=== PATIENT | female | born 1990 | race Caucasian/White ===

== ENCOUNTER 2017-07-22 16:36 | Outpatient (CLI) | payer OTHER, MEDICAID ==
[~2017-07-22] VITALS: Ht 165.1 cm; Wt 85.5 kg
[2017-07-22 17:01] VITALS: Ht 165.1 cm; Wt 85.5 kg
--- NOTE | 2017-07-22 17:29 | RADRPT ---
PROCEDURE: US OB. CLINICAL INDICATION: Large for gestational age. TECHNIQUE: Multiple sonographic images of the uterus were obtained. The images were revi ewed on a PACS workstation. COMPARISON: No prior studies are available for comparison. FINDINGS: There is a single live intrauterine gestation. heart rate is 163 beats per minute. Measurements were made in order to determine age. The results are as follows: BPD = 9.60 cm. HC = 34.38 cm. AC = 35.34 cm. FL = 7.50 cm. Estimated weight is 3688 +/- 553 grams. LMP growth percentile is 94%. Menstrual age by ultrasound dates is 39 weeks 1 day. The estimated date of delivery is 07/28/2017. Position is cephalic and placenta is anterior grade II. There is no evidence for an abruption or luis centa previa. IMPRESSION: 1. Single live intrauterine gestation of 39 weeks 1 day menstrual age by ultrasound dates. 2. The estimated date of delivery is 07/28/2017. 3. L of the growth percentile is 94% with estimated weight 3688 g. RPTAT: QQ .Steve Teixeira MD, Date Time Electronically viewed and signed by .Steve Teixeira MD, on 07/22/2017 17:29 .R/
--- NOTE | 2017-07-22 23:39 | TRIAGE ---
OB Triage Datetime Report Generated by CPN: 07/22/2017 23:39 Datetime: 07/22/2017 19:09 EGA: 37.2 Datetime: 07/22/2017 17:00 Assessment Type: Triage Maternal Assessment Level of Consciousness: Fully Conscious DTR's/Clonus: DTRs 2+; No Clonus Headache: Denies Blurred Vision: No Respiratory Effort: Unlabored; Regular Rhythm; Equal Expansion Breath Sounds, Left: Clear and Equal Breath Sounds, Right: Clear and Equal Nausea/Vomiting: Denies RUQ Epigastric Pain: Denies Facial Edema: None Fall Risk Assessment History of Falling: (0) No Secondary Diagnosis: (0) No Ambulatory Aid: (0) Bedrest/Nurse Assist IV Therapy: (0) No Gait: (0) Normal/Bedrest/Immobile Mental Status: (0) Oriented to Own Ability Fall Score: 0 Fall Risk Score Definition: No Risk: No action required Labor Evaluation Frequency: 0 Monitor Mode: External Heart Rate FHR Baseline Rate: 135 Monitor Mode: External US FHR Baseline Changes: No Baseline Change Variability: Moderate 6-25 bpm Accelerations: 15X15 Decelerations: None Category: Category I Pain Assessment Pain Presence: None/Denies Datetime: 07/22/2017 16:30 Time of Arrival: 07/22/2017 16:30 Arrived By: Ambulatory Arrived From: Office Chief Complaint: EFW FOR MACROSOMNIA Movement: Present Contractions: Denies/Absent Rupture of Membranes: Denies Vaginal Bleeding: None Vaginal Discharge: Denies Recent Sexual Intercouse: Denies Abdominal Trauma: Not Applicable Patient Complaints: None Time Provider Notified: 07/22/2017 18:15 Provider Notified: NESHA Initial Plan: EFW
--- NOTE | 2017-07-23 | PN ---
Triage Information Date/Time 07/22/1709/26/2350 Reason for visit: EFW and Presentation Weeks of Gestation 37w2d /Para A1(sab) Diabetes: none Hypertention: none Objective Heart Rate: 150's Contractions: None Results/Medications Imaging Results EFW 3688+/- 553 94% cephalic ant placenta grade II Disposition: Discharge Assessment/Plan IUP 37w2d LGA PLAN discharge home f/u at [facility] CAMDEN FALK MD Jul 23, 2017 00:00
== END 2017-07-22 20:05 | disposition home or self-care (01) ==
LOC: OBT 16:36 → L-D 16:38 → OBT 20:05
PROVIDERS: ATTEND Obstetrics & Gynecology
DX: O36.63X0 Maternal care for excessive fetal growth, third trimester, not applicable or unspecified (principal); Z3A.37 37 weeks gestation of pregnancy
CPT/HCPCS: 76815; G0463

== ENCOUNTER 2017-08-04 05:37 | Inpatient (IN) | payer OTHER, MEDICAID ==
[~2017-08-04] VITALS: Ht 165.1 cm; Wt 87.6 kg
[2017-08-04 05:52] VITALS: Ht 165.1 cm; Wt 87.6 kg
[2017-08-04] MEDS ORDERED: OXYTOCIN 30 UNITS/LR 500 ML IV SCH (06:00)
[2017-08-04] MEDS ORDERED: OXYTOCIN 30 UNITS/LR 500 ML IV PRN ×2 (06:00→14:00)
[2017-08-04] MEDS ORDERED: CARBOPROST 250 MCG INJ IM PRN ×2 (06:00→14:00)
[2017-08-04] MEDS ORDERED: MISOPROSTOL 200 MCG TAB PR PRN ×2 (06:00→14:00)
[2017-08-04] MEDS ORDERED: METHYLERGONOVINE 0.2 MG INJ IM PRN ×2 (06:00→14:00)
[2017-08-04] MEDS ORDERED: CEFAZOLIN 2 GM/50 ML (PMX) 50 ML IV SCH (06:00)
[2017-08-04 06:20] LABS: BASOPHILS % 0.2 % (0.0-2.0); EOSINOPHILS # 0.2 10^3/ul (0.0-0.5); EOSINOPHILS % 1.9 % (0.0-7.0); HEMATOCRIT 38.4 % (37.0-47.0); HEMOGLOBIN 13.3 g/dl (12.0-16.0); LYMPHOCYTES # 1.8 10^3/ul (0.8-2.9); LYMPHOCYTES % 17.2 % (15.0-51.0); MEAN CORPUSCULAR HEMOGLOBIN 32.9 pg (29.0-33.0); MEAN CORPUSCULAR HGB CONC 34.6 g/dl (32.0-37.0); MEAN PLATELET VOLUME 10.6 fl (7.4-10.4); MONOCYTE # 0.5 10^3/ul (0.3-0.9); MONOCYTES % 5.1 % (0.0-11.0); NEUTROPHILS % 74.9 % (39.0-77.0); PLATELET COUNT 157 10^3/UL (140-415); RED BLOOD COUNT 4.04 10^6/ul (4.20-5.40); RED CELL DISTRIBUTION WIDTH 12.8 % (11.5-14.5); WHITE BLOOD COUNT 10.7 10^3/ul (4.8-10.8)
[2017-08-04] MEDS: LACTATED RINGER'S 1,000 ML IV SCH ×4 (06:29→22:39)
[2017-08-04 06:42] LABS: INR 0.91; PROTIME 12.2 Sec (12.2-14.2)
[2017-08-04 06:43] LABS: PARTIAL THROMBOPLASTIN TIME 28.1 Sec (25.0-35.0)
[2017-08-04 07:44] VITALS: BP 128/77; PULSE 83; RESP 20
[2017-08-04] MEDS ORDERED: PHENYLephrine (100 MCG/ML) 5ML SYG ONE (07:46)
[2017-08-04] MEDS ORDERED: FENTAnyl 50 MCG/ML VIAL ONE (07:46)
[2017-08-04] MEDS ORDERED: OXYTOCIN 10 UNIT INJ ONE (07:46)
[2017-08-04] MEDS ORDERED: METOCLOPRAMIDE 10 MG INJ ONE ×2 (07:46→08:55)
[2017-08-04] MEDS ORDERED: morphine SULFATE/PF (10 MG/10 ML) INJ ONE (07:47)
[2017-08-04] MEDS ORDERED: ONDANSETRON 4 MG INJ IV STA (08:15)
[2017-08-04] MEDS ORDERED: CITRIC ACID/NA CITRATE 30 ML CUP PO ONE (08:20)
--- NOTE | 2017-08-04 08:57 | HP ---
Date/Time of Note Date/Time of Note DATE: 08/04/17 TIME: 08:47 OB - History Hx of Present Free Text/Dictation 26 years old white female [id number] admitted to [facility] at 39 weeks and 1 day with request for delivery due to took a phobia, has declined trial of labor complication of section including but not limited to bowel and bladder injury infection hemorrhage and hematoma possible section for future pregnancies has been discussed with the patient she would like to proceed with this operation Chief Complaint: 39 weeks request for elective section Estimated Due Date: Aug 10, 2017 : 2 Para: 0 Spontaneous : 1 Care: Good Care Ultrasounds: Normal mid trimester US Obstetrical Complications: None Medical Complications: None Past Family/Social History * Past Medical, Surgical, Family and Obstetric Histories reviewed from chart. Rubella: immune RPR/VDRL: Negative GBS Status: Negative HBsAG: Negative OB Admission Exam Vital Signs Vital Signs Vital Signs Date Time Temp Pulse Resp B/P Pulse Ox O2 Delivery O2 Flow Rate FiO2 08/04/17 07:44 98.8 83 20 128/77 Room Air Physical Exam HEENT: WNL Heart: Rhythm Normal Lungs: Clear, Equal Abdomen: WNL Reflexes: Normal Cervical Dilatation: None Station: Ballot[place] Heart Rate: 130's Accelerations: Accelerations Present Decelerations: No Decelerations Contractions on Admission: >10 Minutes Apart Last 72 hours Lab Results CBC & BMP 08/04/17 06:05 OB Assessment/Plan Reason for admission: other (39 weeks1/7 , request for elective section) Other plan: 26 years old SAB 139 weeks and 1 day admitted to [facility] with request for elective section, complication of including but not limited to bowel bladder injury infection hemorrhage hematoma possible section with future deliveries ,versus vaginal delivery has been explained to the patient and she would like to proceed with the operation MARIANN JEFFRIES MD Aug 04, 2017 08:57
[2017-08-04] MEDS ORDERED: DEXAMETHASONE 4 MG/ML 1 ML INJ ONE ×2 (09:00→09:09)
[2017-08-04] MEDS ORDERED: CEFAZOLIN 1 GM INJ ONE (09:00)
[2017-08-04] MEDS ORDERED: MIDAZOLAM 1 MG/ML 2 ML INJ ONE (09:28)
[2017-08-04] MEDS ORDERED: EPHEDrine SULFATE 50 MG/5 ML SYG IV PRN (10:00)
[2017-08-04] MEDS ORDERED: HYDROmorphONE (0.2 MG/ML) 10ML SYG IV PRN ×3 (10:00)
[2017-08-04] MEDS ORDERED: IPRATROPIUM (NEB) 0.5 MG/2.5 ML AMP HHN PRN (10:00)
[2017-08-04] MEDS ORDERED: DIPHENHYDRAMINE 50 MG INJ IV PRN ×2 (10:00)
[2017-08-04] MEDS ORDERED: morphine 4 MG/ML VIAL IV PRN (10:00)
[2017-08-04] MEDS ORDERED: OXYCODONE/ACETAMINOPHEN (5/325) TAB PO PRN ×3 (10:00→14:00)
[2017-08-04] MEDS ORDERED: LABETALOL HCL 20MG INJ IV PRN (10:00)
[2017-08-04] MEDS ORDERED: TRIMETHOBENZAMIDE 100 MG/ML VIAL IM PRN ×2 (10:00)
[2017-08-04] MEDS ORDERED: morphine 2 MG INJ IV PRN (10:00)
[2017-08-04] MEDS ORDERED: NALOXONE (0.4 MG/ML) INJ IV PRN (10:00)
[2017-08-04] MEDS ORDERED: ALBUTEROL 0.083% (NEB) 2.5 MG/3 ML AMP HHN PRN (10:00)
[2017-08-04] MEDS ORDERED: NALBUPHINE HCL (10 MG/1 ML) INJ IV PRN (10:00)
[2017-08-04] MEDS ORDERED: hydrALAzine 20 MG INJ IV PRN (10:00)
[2017-08-04] MEDS ORDERED: ONDANSETRON 4 MG INJ IV PRN ×2 (10:00)
[2017-08-04] MEDS ORDERED: FENTAnyl 50 MCG/ML VIAL IV PRN ×3 (10:00)
[2017-08-04] MEDS ORDERED: MEPERIDINE 25 MG INJ IV PRN (10:00)
--- NOTE | 2017-08-04 10:05 | OPR ---
Operative Report Planned Procedure Free Text/Dictation 26 years old EDC August 09 admitted to [facility] with request for elective patient's preference possible due to tocophobia. Procedure date Aug 04, 2017 Procedure(s) Primary Performed by see signature line Assisting provider: MALINI CONTEH MD Anesthesiologist: Braxton Holcomb M.D. Pre-procedure diagnosis Term 39 weeks and 1 day request for elective section Anesthesia Type: spinal Procedure Description Under satisfactory spinal anesthesia, the patient was prepped and draped and placed in a supine position, tilted to the left. Pfannenstiel incision was made , carried through the subcutaneous tissue. Bleeders brought under control with electrocautery. Fascia incised to the length of the incision. Rectus muscles from the fascia, divided midline. Peritoneum exposed, entered through a transverse incision. Exploration of abdomen revealed gravid uterus at term with extensive varicosities of the lower segment of the uterus normal-appearing tubes and ovaries. Bladder flap was developed. Transverse incision was made in the lower segment of the uterus. Amniotic sac ruptured. Clear amniotic fluid noted live baby boy was delivered from occiput posterior Nasal oropharyngeal suction was performed. baby handed to the team for immediate attention. Patient received 20 units of Pitocin placenta was delivered manually intact. Uterine cavity cleaned with wet sponge and drainage established. Uterus closed in 2 layers using Monocryl #1 in continuous fashion. Peritoneal cavity irrigated with warm saline. Sponge, needle and instrument count reported to be correct. Abdominal peritoneum closed with 2-0 chromic catgut [] continuously. Rectus muscle approximated with few interrupted 2-0 chromic catgut. Fascia closed with #1 PDS , subcutaneous tissue approximated with few interrupted 2-0 chromic catgut skin closed subcuticular, 3-0 Monocryl estimated blood loss 600 mL. Urine bag contained 200 mL of clear urine patient tolerated procedure well transferred to recovery room in good condition. Post-Procedure Findings: Live Baby boy 9 and 9 baby waited 8 lbs. 14 oz. equal to 4015 g Estimated blood loss: other (600 cc) Specimen(s): no Grafts/Implants: no Pt Condition post procedure: stable Physician Certification I, the undersigned physician, hereby certify that I have discussed the procedure described in this consent form with this patient (or the patient's legal corporate representative), including: * The risk and benefits of the procedure; * Any adverse reactions that may reasonably be expected to occur; * Any alternative efficacious methods of treatment which may be medically viable ; * The potential problems that may occur during recuperation; * Potential for blood transfusion and associated risks/benefits; and * Any research or economic interest I may have regarding this treatment. I further certify that the patient/legally responsible person was encouraged to ask question and that all questions were answered. MARIANN JEFFRIES MD Aug 04, 2017 10:02
[2017-08-04] MEDS ORDERED: OXYTOCIN 30 UNITS/LR 500 ML IVPB ONE (11:00)
[2017-08-04] MEDS: KETOROLAC 30 MG INJ IV PRN ×2 (11:55→20:06)
[2017-08-04 12:45] VITALS: BP 118/73; PULSE 83; RESP 18
[2017-08-04] MEDS: OXYTOCIN 30 UNITS/LR 500 ML IV SCH ×3 (13:33→21:33)
[2017-08-04] MEDS ORDERED: HYDROCODONE/APAP (5/325) TAB PO PRN ×2 (14:00)
[2017-08-04] MEDS ORDERED: CEFAZOLIN 1 GM/50 ML (PMX) 50 ML IVPB SCH (14:00)
[2017-08-04] MEDS ORDERED: LANOLIN 7 GM TUBE TOP PRN (14:00)
[2017-08-04 16:00] VITALS: BP 128/78; PULSE 83; RESP 18
[2017-08-04 20:00] VITALS: BP 109/58; PULSE 81; RESP 18
[2017-08-04] MEDS: SENNA/DOCUSATE NA (8.6MG/50MG) TAB PO SCH (21:18)
[2017-08-05 00:30] VITALS: BP 111/68; PULSE 91; RESP 18
[2017-08-05] MEDS: OXYTOCIN 30 UNITS/LR 500 ML IV SCH ×2 (01:33→05:33)
[2017-08-05] MEDS: KETOROLAC 30 MG INJ IV PRN ×2 (02:10→07:38)
[2017-08-05 04:00] VITALS: BP 115/50; PULSE 87; RESP 18
[2017-08-05] MEDS: LACTATED RINGER'S 1,000 ML IV SCH (06:27)
[2017-08-05 09:00] VITALS: BP 101/72; PULSE 96; RESP 18
[2017-08-05 10:49] LABS: BASOPHILS % 0.2 % (0.0-2.0); EOSINOPHILS # 0.1 10^3/ul (0.0-0.5); EOSINOPHILS % 0.3 % (0.0-7.0); HEMATOCRIT 32.3 % (37.0-47.0); HEMOGLOBIN 10.6 g/dl (12.0-16.0); LYMPHOCYTES # 2.1 10^3/ul (0.8-2.9); LYMPHOCYTES % 14.4 % (15.0-51.0); MEAN CORPUSCULAR HEMOGLOBIN 31.5 pg (29.0-33.0); MEAN CORPUSCULAR HGB CONC 32.8 g/dl (32.0-37.0); MEAN CORPUSCULAR VOLUME 96.1 fl (82.0-101.0); MEAN PLATELET VOLUME 10.8 fl (7.4-10.4); MONOCYTE # 0.7 10^3/ul (0.3-0.9); NEUTROPHIL # 11.9 10^3/ul (1.6-7.5); NEUTROPHILS % 79.6 % (39.0-77.0); PLATELET COUNT 165 10^3/UL (140-415); RED BLOOD COUNT 3.36 10^6/ul (4.20-5.40); WHITE BLOOD COUNT 14.9 10^3/ul (4.8-10.8)
--- NOTE | 2017-08-05 11:20 | QN ---
Documentation Comment Circumcision note Under sterile condition and signed consent circumcision performed using Gomco 1.1, no bleeding noted post circumcision, instructions for post circumcision Care given to the parents MARIANN JEFFRIES MD Aug 05, 2017 11:20
--- NOTE | 2017-08-05 11:21 | PN ---
Date/Time of Note Date/Time of Note DATE: 08/05/17 TIME: 11:20 OB Subjective Subjective Subjective Post day 1 Afebrile Vital signs are stable Abdomen soft, bowel sounds present, patient able to pass flatus, incision dry Extremities normal Ambulation encouraged Laboratory Tests Test 08/05/17 09:54 White Blood Count 14.910^3/ul Red Blood Count 3.3610^6/ul Hemoglobin 10.6g/dl Hematocrit 32.3% Mean Corpuscular Volume 96.1fl Mean Corpuscular Hemoglobin 31.5pg Mean Corpuscular Hemoglobin Concent 32.8g/dl Red Cell Distribution Width 13.0% Platelet Count 14453^3/UL Mean Platelet Volume 10.8fl Neutrophils % 79.6% Lymphocytes % 14.4% Monocytes % 5.0% Eosinophils % 0.3% Basophils % 0.2% Nucleated Red Blood Cells % 0.0/100WBC Neutrophils # 11.910^3/ul Lymphocytes # 2.110^3/ul Monocytes # 0.710^3/ul Eosinophils # 0.110^3/ul Basophils # 0.010^3/ul Nucleated Red Blood Cells # 0.010^3/ul Current Medications Medications (Trade) Dose Ordered Sig/Kyleigh Route PRN Reason Start Time Stop Time Status Last Admin Dose Admin Lactated Ringer's 1,000 ml @ 125 mls/hr Q8H IV 08/04/17 05:54 08/04/17 13:43 DC 08/04/17 07:38 Cefazolin Sodium/ Dextrose 50 ml @ 100 mls/hr ONCE IV 08/04/17 06:00 08/04/17 13:43 DC Oxytocin/Lactated Ringer's 500 ml @ 125 mls/hr ONCE IV 08/04/17 06:00 08/04/17 13:43 DC 08/04/17 10:15 Oxytocin/Lactated Ringer's 500 ml @ 0 mls/hr ONCE PRN IV For Hemorrhage Management 08/04/17 06:00 08/04/17 13:43 DC Methylergonovine Maleate (Methergine) 0.2 mg ONCE PRN IM VAGINAL BLEEDING 08/04/17 06:00 08/04/17 13:43 DC Carboprost Tromethamine (Hemabate) 250 mcg ONCE PRN IM VAGINAL BLEEDING 08/04/17 06:00 08/04/17 13:43 DC Misoprostol (Cytotec) 1,000 mcg ONCE PRN [place] VAGINAL BLEEDING 08/04/17 06:00 08/04/17 13:43 DC Fentanyl (Sublimaze) 100 mcg STK-MED ONCE .ROUTE 08/04/17 07:46 08/04/17 07:47 DC Phenylephrine HCl (Noah-Synephrine Inj Syg) 500 mcg STK-MED ONCE .ROUTE 08/04/17 07:46 08/04/17 07:47 DC Metoclopramide HCl (Reglan) 10 mg STK-MED ONCE .ROUTE 08/04/17 07:46 08/04/17 07:47 DC Oxytocin (Oxytocin) 10 units STK-MED ONCE .ROUTE 08/04/17 07:46 08/04/17 07:47 DC Morphine Sulfate (Duramorph) 10 mg STK-MED ONCE .ROUTE 08/04/17 07:47 08/04/17 07:48 DC Citric Acid/ Sodium Citrate (Bicitra) 30 ml ONCE ONCE PO 08/04/17 08:20 08/04/17 08:22 DC 08/04/17 08:29 Ondansetron HCl (Zofran Inj) 4 mg ONCE STAT IV 08/04/17 08:15 08/04/17 08:22 DC 08/04/17 08:29 Metoclopramide HCl (Reglan) 10 mg STK-MED ONCE .ROUTE 08/04/17 08:55 08/04/17 08:56 DC Dexamethasone (Decadron) 4 mg STK-MED ONCE .ROUTE 08/04/17 09:09 08/04/17 09:10 DC Midazolam HCl (Versed) 2 mg STK-MED ONCE .ROUTE 08/04/17 09:28 08/04/17 09:29 DC Hydromorphone HCl (Dilaudid (Rec)) 0.2 mg PACU ORDER PRN IV MILD PAIN LEVEL 1-3 08/04/17 10:00 08/04/17 13:43 DC Hydromorphone HCl (Dilaudid (Rec)) 0.4 mg PACU ORDER PRN IV MODERATE PAIN LEVEL 4-6 08/04/17 10:00 08/04/17 13:43 DC Hydromorphone HCl (Dilaudid (Rec)) 0.6 mg PACU ORDER PRN IV SEVERE PAIN LEVEL 7-10 08/04/17 10:00 08/04/17 13:43 DC Fentanyl (Sublimaze) 25 mcg PACU ORDER PRN IV MILD PAIN LEVEL 1-3 08/04/17 10:00 08/04/17 13:43 DC Fentanyl (Sublimaze) 50 mcg PACU ODER PRN IV MODERATE PAIN LEVEL 4-6 08/04/17 10:00 08/04/17 13:43 DC Fentanyl (Sublimaze) 75 mcg PACU ORDER PRN IV SEVERE PAIN LEVEL 7-10 08/04/17 10:00 08/04/17 13:43 DC Oxycodone/ Acetaminophen (Percocet (5/ 325)) 1 tab PACU ORDER PRN PO PAIN LEVEL 1-5 08/04/17 10:00 08/04/17 13:43 DC Oxycodone/ Acetaminophen (Percocet (5/ 325)) 2 tab PACU ORDER PRN PO PAIN LEVEL 6-10 08/04/17 10:00 08/04/17 13:43 DC Ondansetron HCl (Zofran Inj) 4 mg PACU ORDER PRN IV NAUSEA AND/OR VOMITING 08/04/17 10:00 08/04/17 13:43 DC Trimethobenzamide HCl (Tigan) 200 mg PACU ORDER PRN IM NAUSEA AND/OR VOMITING 08/04/17 10:00 08/04/17 13:43 DC Labetalol HCl (Labetalol) 5 mg PACU ORDER PRN IV HIGH BLOOD PRESSURE 08/04/17 10:00 08/04/17 13:43 DC Hydralazine HCl (Apresoline) 5 mg PACU ORDER PRN IV HIGH BLOOD PRESSURE 08/04/17 10:00 08/04/17 13:43 DC Ephedrine Sulfate 5 mg PACU ORDER PRN IV MAP LESS THAN 60 08/04/17 10:00 08/04/17 13:43 DC Albuterol (Proventil 0.083% (Neb)) 2.5 mg PACU ORDER PRN HHN WHEEZING 08/04/17 10:00 08/04/17 13:43 DC Ipratropium Capay (Atrovent 0.02% (Neb)) 0.5 mg PACU ORDER PRN HHN WHEEZING 08/04/17 10:00 08/04/17 13:43 DC Meperidine HCl (Demerol) 25 mg PACU ORDER PRN IV POST-OP RIGORS 08/04/17 10:00 08/04/17 13:43 DC Diphenhydramine HCl (Benadryl) 25 mg PACU ORDER PRN IV PRURITUS 08/04/17 10:00 08/04/17 13:43 DC Naloxone HCl (Narcan) 0.1 mg Q2M PRN IV FOR RESP RATE 8 OR LESS 08/04/17 10:00 08/05/17 09:59 DC Ketorolac Tromethamine (Toradol) 30 mg Q6H PRN IV PAIN 08/04/17 10:00 08/05/17 09:59 DC 08/05/17 07:38 Morphine Sulfate (morphine) 2 mg Q3H PRN IV PAIN LEVEL 1-5 08/04/17 10:00 08/05/17 09:59 DC Morphine Sulfate (morphine) 4 mg Q3H PRN IV PAIN LEVEL 6-10 08/04/17 10:00 08/05/17 09:59 DC Diphenhydramine HCl (Benadryl) 25 mg Q6H PRN IV ITCHING 08/04/17 10:00 08/05/17 09:59 DC Nalbuphine HCl (Nubain) 5 mg ONCE PRN IV ITCHING 08/04/17 10:00 08/05/17 09:59 DC Ondansetron HCl (Zofran Inj) 4 mg Q6H PRN IV NAUSEA AND/OR VOMITING 08/04/17 10:00 08/05/17 09:59 DC Trimethobenzamide HCl (Tigan) 200 mg Q6H PRN IM NAUSEA AND/OR VOMITING 08/04/17 10:00 08/05/17 09:59 DC Miscellaneous Information Duramorph: 0.2 mg Spi... GIVEN XX 08/04/17 10:00 08/04/17 13:43 DC Oxytocin/Lactated Ringer's 500 ml @ 125 mls/hr ONCE ONCE IVPB 08/04/17 11:00 08/04/17 13:43 DC 08/04/17 11:07 Acetaminophen/ Hydrocodone Bitart (Westhoff (5/325)) 1 tab Q4H PRN PO PAIN LEVEL 4-6 08/04/17 14:00 Acetaminophen/ Hydrocodone Bitart (Westhoff (5/325)) 2 tab Q4H PRN PO PAIN LEVEL 7-10 08/04/17 14:00 Oxycodone/ Acetaminophen (Percocet (5/ 325)) 1 tab Q4H PRN PO PAIN LEVEL 4-6 08/04/17 14:00 Oxycodone/ Acetaminophen (Percocet (5/ 325)) 2 tab Q4H PRN PO PAIN LEVEL 7-10 08/04/17 14:00 Ibuprofen (Motrin) 600 mg Q6 PO 08/05/17 12:00 Simethicone (Mylicon) 160 mg Q8H PRN PO DISTENSION/GAS/BLOATING 08/04/17 14:00 Senna/Docusate Sodium (Senokot-S) 1 tab BID PO 08/04/17 21:00 08/04/17 21:18 Lanolin (Fpk-P-Ydtxau) 1 applic BEDSIDE MEDICATION PRN TOP BEDSIDE FOR [place] TO NIPPLES 08/04/17 14:00 08/04/17 18:02 Diphtheria/ Tetanus/Acell Pertussis 0.5 ml 0.5 ml ONCE ONCE IM* 08/07/17 09:00 08/07/17 09:01 Oxytocin/Lactated Ringer's 500 ml @ 0 mls/hr ONCE PRN IV For Hemorrhage Management 08/04/17 14:00 Methylergonovine Maleate (Methergine) 0.2 mg ONCE PRN IM VAGINAL BLEEDING 08/04/17 14:00 Carboprost Tromethamine (Hemabate) 250 mcg ONCE PRN IM VAGINAL BLEEDING 08/04/17 14:00 Misoprostol 1000 mcg 1,000 mcg ONCE PRN [place] VAGINAL BLEEDING 08/04/17 14:00 Cefazolin Sodium 50 ml @ 100 mls/hr ONCE IVPB 08/04/17 14:00 08/04/17 14:29 DC 08/04/17 15:18 Oxytocin/Lactated Ringer's 500 ml @ 125 mls/hr Q4H IV 08/04/17 13:33 Lactated Ringer's (Lr) 1,000 ml @ 125 mls/hr Q8H IV 08/04/17 15:30 08/05/17 10:02 DC 08/05/17 06:27 MARIANN JEFFRIES MD Aug 05, 2017 11:21
[2017-08-05] MEDS: SENNA/DOCUSATE NA (8.6MG/50MG) TAB PO SCH ×2 (11:34→21:24)
[2017-08-05] MEDS: IBUPROFEN 600 MG TAB PO SCH ×3 (11:34→23:40)
[2017-08-05] MEDS: OXYCODONE/ACETAMINOPHEN (5/325) TAB PO PRN ×3 (11:35→21:26)
[2017-08-05 16:00] VITALS: BP 107/68; PULSE 77; RESP 18
[2017-08-05 20:30] VITALS: BP 105/56; PULSE 79; RESP 19
[2017-08-06] MEDS: OXYTOCIN 30 UNITS/LR 500 ML IV SCH (00:30)
[2017-08-06] MEDS: OXYCODONE/ACETAMINOPHEN (5/325) TAB PO PRN ×4 (01:54→15:06)
[2017-08-06] MEDS: IBUPROFEN 600 MG TAB PO SCH ×4 (05:41→23:37)
[2017-08-06 05:45] VITALS: BP 109/75; PULSE 89; RESP 18
[2017-08-06 08:00] VITALS: BP 100/65; PULSE 74; RESP 18
[2017-08-06] MEDS: SENNA/DOCUSATE NA (8.6MG/50MG) TAB PO SCH ×2 (10:05→21:54)
--- NOTE | 2017-08-06 10:22 | QN ---
Documentation Comment Post day 2 Afebrile Vital signs are stable Abdomen soft, bowel sounds present, incision dry, no bowel movement, extremities normal, relation encouraged MARIANN JEFFRIES MD Aug 06, 2017 10:22
[2017-08-06 15:45] VITALS: BP 110/66; PULSE 95; RESP 18
[2017-08-06] MEDS ORDERED: NA PHOSPHATE/BIPHOS 133 ML ENEMA PR ONE (16:00)
[2017-08-06 20:00] VITALS: BP 116/59; PULSE 85; RESP 18
[2017-08-07 04:45] VITALS: BP 121/76; PULSE 87; RESP 19
[2017-08-07] MEDS: IBUPROFEN 600 MG TAB PO SCH ×2 (05:41→12:08)
[2017-08-07 08:20] VITALS: BP 104/69; PULSE 70; RESP 17
[2017-08-07] MEDS ORDERED: DIPHTH/TET/ACEL PERTUSS (ADULT) 0.5 ML VIAL IM* ONE (09:00)
[2017-08-07] MEDS: SENNA/DOCUSATE NA (8.6MG/50MG) TAB PO SCH (10:07)
--- NOTE | 2017-08-07 12:30 | PD.PPDC ---
PHONOGRAPH MECHANIC Discharge Instruction Condition Patient Condition: Good Diet Diet: Resume Regular Diet Activity/Restrictions Activity: Normal Activity May Shower Wound/Drain Care Instructions Wound/Drain Care Instructions: Wash with soap and water Keep clean and dry Follow-up Follow-up with Physician: 1, Week/Weeks Provider Information: Post instructions given recommended to be seen at the clinic in 1 week Return to clinic for GLOBAL MARKETING MANAGER Instructions: Fever greater than 101 Chills Worsening abdominal pain Excessive Vaginal Bleeding More than 2 pads per hour Unable to tolerate diet Surgical Instructions: Incisional Drainage Incisional Redness MARIANN JEFFRIES MD Aug 07, 2017 12:30
--- NOTE | 2017-08-07 12:33 | DS ---
Date/Time of Note Date/Time of Note DATE: 08/07/17 TIME: 12:31 Discharge Summary Admission/Discharge Info Admit Date/Time Aug 04, 2017 at 05:37 Discharge Date/Time August 07, 2017 at 1230 Discharge Diagnosis Date 3 post primary Procedures Primary Hx of Present Illness Term request for elective Hospital Course Satisfactory recovery Home Meds No Active Prescriptions or Reported Meds Follow-up Plan instruction given recommended patient to make appointment to be seen at the clinic in 1 week Primary Care Provider Not On Staff Doctor Time spent on discharge: < 30 minutes MARIANN JEFFRIES MD Aug 07, 2017 12:33
== END 2017-08-07 18:45 | disposition home or self-care (01) | DRG 766 ==
LOC: L-D 05:37 → PP1 12:40
PROVIDERS: ADMIT Obstetrics & Gynecology; ATTEND Obstetrics & Gynecology
PROC: 10D00Z1 Extraction of Products of Conception, Low, Open Approach (ICD-10-PCS; principal; 2017-08-04 07:30)
DX: O75.82 Onset (spontaneous) of labor after 37 completed weeks of gestation but before 39 completed weeks gestation, with delivery by (planned) cesarean section (principal); Z37.0 Single live birth; Z3A.39 39 weeks gestation of pregnancy
CPT/HCPCS: 85025; 85610; 85730; 86592; 86850; 86900; 86901; 87340; 90715; 99464; J0690; J1100; J1885; J2250; J2274; J2370; J2405; J2590; J2765; J3010; J7120

== ENCOUNTER 2017-08-15 05:46 | Emergency (ER) | payer OTHER, MEDICAID ==
[~2017-08-15] VITALS: Ht 165.1 cm; Wt 79.1 kg
[2017-08-15 05:52] VITALS: Ht 165.1 cm; Wt 79.1 kg
--- NOTE | 2017-08-15 07:19 | RADRPT ---
PROCEDURE: Pelvic ultrasound, limited. CLINICAL INDICATION: bleeding status post section. TECHNIQUE: Multiple sonographic images of the pelvis were obtained utilizing a transabdominal gavino hnique. The images were reviewed on a PACS workstation. COMPARISON: None. FINDINGS: There is an enlarged, uterus measuring 13.5 x 5.9 x 8.5 cm. No abnormal uterine mass is i dentified. The endometrial echo complex is hypoechoic measuring 18.4 cm. There is no abnormal vascu larity to suggest retained products. There is no evidence for free fluid. The right ovary measures 3.3 x 1.2 x 3.6 cm and demonstrates n ormal flow. The left ovary is not visualized. No adnexal masses are identified. IMPRESSION: Mildly thickened endometrium with no vascularity to suggest retained products. Enlarged, uterus. Left ovary not visualized. .Gordy Silva MD, Date Time Electronically viewed and signed by .Gordy Silva MD, on 08/15/2017 07:19 .T/
--- NOTE | 2017-08-15 08:04 | ERD ---
ER Documentation Chief Complaint Chief Complaint vaginal bleeding since 0200am, post 11 days ago, c/section HPI This 26-year-old female presents with vaginal bleeding starting this morning. She has had some intermittent vaginal bleeding since a 11 days ago. She also has URI symptoms and is taking Keflex. She denies any fevers, current bleeding as it seems to have resolved. She has some mild persistent suprapubic or incisional tenderness since her surgery. She is breast-feeding. ROS All systems reviewed and are negative except as per history of present illness. Medications Home Meds No Active Prescriptions or Reported Meds Allergies Allergies: Coded Allergies: sulfamethoxazole (Verified Allergy, Unknown, 08/15/17) trimethoprim (Verified Allergy, Unknown, 07/22/17) PMhx/Soc Hx Alcohol Use: No Hx Substance Use: No Hx Tobacco Use: No Smoking Status: Never smoker Physical Exam Vitals Vital Signs Date Time Temp Pulse Resp B/P Pulse Ox O2 Delivery O2 Flow Rate FiO2 08/15/17 05:52 98.2 91 20 100/57 98 Physical Exam Const: [] [id number]. Head: Atraumatic Eyes: Normal Conjunctiva ENT: Normal External Ears, Nose and Mouth. Neck: Full range of motion..~ No meningismus. Resp: Clear to auscultation bilaterally Cardio: Regular rate and rhythm, no murmurs Abd: Soft, mild incisional tenderness without rebound. No tenderness at McBurney's point no Duncan sign., non distended. Normal bowel sounds Skin: No petechiae or rashes Back: No midline or flank tenderness Ext: No cyanosis, or edema Neur: Awake and alert Psych: Normal Mood and Affect Result Diagram: 08/15/17 0635 Results 24 hrs Laboratory Tests Test 08/15/17 06:35 White Blood Count 9.010^3/ul Red Blood Count 3.8710^6/ul Hemoglobin 12.4g/dl Hematocrit 37.7% Mean Corpuscular Volume 97.4fl Mean Corpuscular Hemoglobin 32.0pg Mean Corpuscular Hemoglobin Concent 32.9g/dl Red Cell Distribution Width 12.1% Platelet Count 01811^3/UL Mean Platelet Volume 9.0fl Neutrophils % 75.8% Lymphocytes % 16.1% Monocytes % 5.1% Eosinophils % 2.3% Basophils % 0.4% Nucleated Red Blood Cells % 0.0/100WBC Neutrophils # 6.810^3/ul Lymphocytes # 1.410^3/ul Monocytes # 0.510^3/ul Eosinophils # 0.210^3/ul Basophils # 0.010^3/ul Nucleated Red Blood Cells # 0.010^3/ul Beta HCG, Quantitative 17.6mIU/ml Procedures/MDM Pelvic ultrasound shows thickened endometrium without evidence of retained products and no masses or acute abnormalities. CBC is normal. HCG is 17 patient was stable throughout ED course. Patient presents with intermittent vaginal bleeding post 11 days ago. There is currently no signs or symptoms to suggest acute abdomen, anemia eclampsia or additional complications related to recent or emergent causes of presenting complaints.. She will discharged home with further observation and primary care and OB follow-up , fluids and return precautions. The patient was stable with no new complaints during the ER course. Clinically, there is no current evidence to suggest meningitis, sepsis, acute abdomen, pneumonia, acute coronary syndrome, pulmonary embolism, or any other emergent condition appearing to require further evaluation or hospitalization. The patient should certainly return for any new or worsening symptoms per the aftercare instructions. They should otherwise follow-up with her primary care doctor for reevaluation this week. Departure Diagnosis: Primary Impression: Vaginal bleeding Condition: Stable Patient Instructions: Dysfunctional Uterine Bleeding Additional Instructions: Senna laboratory work normal today. Recommend fluids, Tylenol and follow-up with OB this week. Recheck for fevers, vomiting, new worsening symptoms. KENNETH WINKLER MD Aug 15, 2017 08:03
== END 2017-08-15 08:09 | disposition home or self-care (01) ==
LOC: FTE 05:46
DX: O72.2 Delayed and secondary postpartum hemorrhage (principal)
CPT/HCPCS: 36415; 76856; 84702; 85025

== ENCOUNTER 2017-09-25 00:37 | Emergency (ER) | payer MEDICAID, OTHER ==
[~2017-09-25] VITALS: Ht 167.6 cm; Wt 89.5 kg
[2017-09-25 01:07] VITALS: Ht 167.6 cm; Wt 89.5 kg
[2017-09-25] MEDS ORDERED: SOD CHLORIDE 0.9% 1,000 ML IV STA (03:15)
[2017-09-25] MEDS ORDERED: ONDANSETRON 4 MG INJ IV STA ×2 (03:15→05:19)
--- NOTE | 2017-09-25 03:31 | ERD ---
ER Documentation Chief Complaint Chief Complaint BIB FRIEND FOR NAUSEA AND VOMITING SINCE MORNING, NO ABDOMINAL PAIN HPI 27-year-old otherwise healthy female who is 50 days, presents to the emergency department for nausea, vomiting and diarrhea which began tonight. Patient states she ate a salad from the salad bar here at the hospital and developed nausea 1 hour afterwards. She states since that time she has experienced 6 or 7 episodes of vomiting and 3 or 4 episodes of diarrhea. She denies abdominal pain, fever, chills, chest pain or shortness of breath. ROS All systems reviewed and are negative except as per history of present illness. Medications Home Meds Active Scripts Electrolyte,Oral (Pedialyte) 1,000 Ml Solution, 100 ML PO Q6 Y for VOMITTING for 7 Days, ML Prov:MIR GUZMAN PA-C 09/25/17 Metoclopramide* (Reglan*) 10 Mg Tablet, 10 MG PO Q6 Y for NAUSEA AND/OR VOMITING , #20 TAB Prov:MIR GUZMAN PA-C 09/25/17 Allergies Allergies: Coded Allergies: sulfamethoxazole (Verified Allergy, Unknown, 09/25/17) trimethoprim (Verified Allergy, Unknown, 07/22/17) PMhx/Soc Medical and Surgical Hx: pt denies Medical Hx Hx Alcohol Use: No Hx Substance Use: No Hx Tobacco Use: No Physical Exam Vitals Vital Signs Date Time Temp Pulse Resp B/P Pulse Ox O2 Delivery O2 Flow Rate FiO2 09/25/17 04:58 99.9 95 16 111/68 99 Room Air 09/25/17 01:07 98.8 108 18 109/69 100 Physical Exam Const: Gallop, well-nourished, in no acute distress Head: Atraumatic Eyes: Normal Conjunctiva ENT: Normal External Ears, Nose and Mouth. Neck: Full range of motion..~ No meningismus. Resp: Clear to auscultation bilaterally Cardio: Regular rate and rhythm, no murmurs Abd: Soft, non tender, non distended. Normal bowel sounds Skin: No petechiae or rashes Back: No midline or flank tenderness Ext: No cyanosis, or edema Neur: Awake and alert Psych: Normal Mood and Affect Result Diagram: 09/25/17 0402 09/25/17 0402 Results 24 hrs Laboratory Tests Test 09/25/17 03:52 09/25/17 04:02 Bedside Urine pH (LAB) 5.5 Bedside Urine Protein (LAB) Negative Bedside Urine Glucose (UA) Negative Bedside Urine Ketones (LAB) 3+ Bedside Urine Blood Negative Bedside Urine Nitrite (LAB) Negative Bedside Urine Leukocyte Esterase (L Negative White Blood Count 8.310^3/ul Red Blood Count 5.1710^6/ul Hemoglobin 15.7g/dl Hematocrit 46.7% Mean Corpuscular Volume 90.3fl Mean Corpuscular Hemoglobin 30.4pg Mean Corpuscular Hemoglobin Concent 33.6g/dl Red Cell Distribution Width 11.8% Platelet Count 71887^3/UL Mean Platelet Volume 10.8fl Neutrophils % 94.3% Lymphocytes % 3.0% Monocytes % 1.8% Eosinophils % 0.6% Basophils % 0.2% Nucleated Red Blood Cells % 0.0/100WBC Neutrophils # 7.810^3/ul Lymphocytes # 0.310^3/ul Monocytes # 0.210^3/ul Eosinophils # 0.110^3/ul Basophils # 0.010^3/ul Nucleated Red Blood Cells # 0.010^3/ul Sodium Level 146mmol/L Potassium Level 4.7mmol/L Chloride Level 107mmol/L Carbon Dioxide Level 26mmol/L Anion Gap 18 Blood Urea Nitrogen 23mg/dl Creatinine 0.71mg/dl Glucose Level 107mg/dl Calcium Level 9.6mg/dl Total Bilirubin 0.8mg/dl Direct Bilirubin 0.00mg/dl Indirect Bilirubin 0.8mg/dl Aspartate Amino Transf (AST/SGOT) 30IU/L Alanine Aminotransferase (ALT/SGPT) 46IU/L Alkaline Phosphatase 122IU/L Total Protein 8.0g/dl Albumin 4.6g/dl Globulin 3.40g/dl Albumin/Globulin Ratio 1.35 Lipase 161U/L Current Medications Medications (Trade) Dose Ordered Sig/Kyleigh Route PRN Reason Start Time Stop Time Status Last Admin Dose Admin Sodium Chloride (NS) 1,000 ml @ 1,000 mls/hr Q1H STAT IV 09/25/17 03:15 09/25/17 04:14 DC 09/25/17 04:09 Ondansetron HCl 4 mg 4 mg ONCE STAT IV 09/25/17 03:15 09/25/17 03:17 DC 09/25/17 04:08 Sodium Chloride (NS) 1,000 ml @ 1,000 mls/hr Q1H ONCE IV 09/25/17 05:30 09/25/17 06:29 Ondansetron HCl (Zofran Inj) 4 mg ONCE STAT IV 09/25/17 05:19 09/25/17 05:34 DC Metoclopramide HCl (Reglan) 10 mg ONCE ONCE IV 09/25/17 06:00 09/25/17 06:01 Procedures/[facility] This is a 27-year-old otherwise healthy female is 50 days who presents with nausea and vomiting after eating a salad earlier this evening. She denies abdominal pain or other symptoms. Vital signs reviewed and it was slightly tachycardic upon arrival. Otherwise vital signs within normal limits. Physical exam unremarkable. Patient was nontender during abdominal exam. She did not exhibit flank tenderness. CBC showed no evidence of systemic infection or severe anemia. CMP showed no evidence of electrolyte abnormalities, severe acidosis, alkalosis , renal failure, or liver disease. Lipase showed no evidence of acute pancreatitis. UA showed no evidence of acute infection or hematuria. Urine test was negative. Patient received IV fluids and nausea medication while in the emergency department and reports improvement of symptoms. Patient symptoms likely the result of an acute viral syndrome. At this time low suspicion for , severe dehydration, urinary tract infection, pyelonephritis, cholecystitis, pancreatitis, diverticulitis, bowel obstruction, or other acute abdomen. Based on patient's history of present illness and physical examination the decision was made to discharge. The patient was re-evaluated after ED treatment and stabilizing measures, and symptoms have improved. There is no evidence of life threatening injuries or illnesses at this time. On re-examination, patient resting in no distress, stable vital signs, reports feeling better and safe for discharge with outpatient follow up with PMD in 1-2 days. Patient given return precautions. Departure Diagnosis: Primary Impression: Nausea and vomiting Vomiting type: unspecified Vomiting Intractability: non-intractable Qualified Code: R11.2 - Non-intractable vomiting with nausea, unspecified vomiting type MIR GUZMAN PA-C Sep 25, 2017 03:31
[2017-09-25 03:51] LABS: URINE BLOOD (Dip) POC Negative (NEGATIVE)
[2017-09-25 04:33] LABS: ABNORMAL IP MESSAGE 1; BASOPHILS % 0.2 % (0.0-2.0); EOSINOPHILS # 0.1 10^3/ul (0.0-0.5); EOSINOPHILS % 0.6 % (0.0-7.0); HEMATOCRIT 46.7 % (37.0-47.0); HEMOGLOBIN 15.7 g/dl (12.0-16.0); LYMPHOCYTES # 0.3 10^3/ul (0.8-2.9); MEAN CORPUSCULAR HEMOGLOBIN 30.4 pg (29.0-33.0); MEAN CORPUSCULAR HGB CONC 33.6 g/dl (32.0-37.0); MEAN CORPUSCULAR VOLUME 90.3 fl (82.0-101.0); MEAN PLATELET VOLUME 10.8 fl (7.4-10.4); MONOCYTE # 0.2 10^3/ul (0.3-0.9); MONOCYTES % 1.8 % (0.0-11.0); NEUTROPHIL # 7.8 10^3/ul (1.6-7.5); NEUTROPHILS % 94.3 % (39.0-77.0); PLATELET COUNT 167 10^3/UL (140-415); RED BLOOD COUNT 5.17 10^6/ul (4.20-5.40); RED CELL DISTRIBUTION WIDTH 11.8 % (11.5-14.5); WHITE BLOOD COUNT 8.3 10^3/ul (4.8-10.8)
[2017-09-25 04:35] LABS: POSITIVE DIFF @See below
[2017-09-25 04:57] LABS: ALBUMIN 4.6 g/dl (3.3-4.9); ALBUMIN/GLOBULIN RATIO 1.35; BILIRUBIN,INDIRECT 0.8 mg/dl (0-1.1); BILIRUBIN,TOTAL 0.8 mg/dl (0.2-1.3); CALCIUM 9.6 mg/dl (8.4-10.2); CREATININE 0.71 mg/dl (0.44-1.00); POTASSIUM 4.7 mmol/L (3.5-5.1)
[2017-09-25 04:58] VITALS: BP 111/68; PULSE 95; RESP 16; TEMP 99.9
[2017-09-25] MEDS ORDERED: SOD CHLORIDE 0.9% 1,000 ML IV ONE (05:30)
[2017-09-25] MEDS ORDERED: ELEC100080 PO (05:39)
[2017-09-25] MEDS ORDERED: METO10TA92 PO (05:39)
[2017-09-25] MEDS ORDERED: METOCLOPRAMIDE 10 MG INJ IV ONE (06:00)
== END 2017-09-25 06:45 | disposition home or self-care (01) ==
LOC: FTE 00:37
DX: R11.2 Nausea with vomiting, unspecified (principal)
CPT/HCPCS: 36415; 80053; 81003; 83690; 85025; 96374; 96375; 99284; J2405; J2765; J7030

== ENCOUNTER 2018-02-08 17:57 | Emergency (ER) | END 2018-02-08 22:50 | disposition home or self-care (01) ==